=== PATIENT | male | born 1940 | race Caucasian/White ===

== ENCOUNTER 2019-04-23 23:45 | Emergency (ER) | payer MEDICARE ==
[2019-04-23] MEDS ORDERED: Tetracaine 0.5% OPTH.SOL 4 ML* 1 DROP BTL RIGHT EYE ONE (23:47)
[2019-04-23 23:54] VITALS: BP 144/91
[2019-04-23] MEDS ORDERED: Fluorescein Sodium TOPICAL* 1 MG TEST STRIP OPHTHALMIC ONE (23:55)
--- OUTSIDE RECORDS SUMMARY | 2019-04-23 23:56 | XMS REPORT | Summary of Care ---
:1940 Author Organization [facility] Address [address] [address] Care Team Providers Name Role Phone Kleber Perez Primary Care Provider Reason for Visit Reason Comments Trigger Finger Encounter Details Date Type Department Care Team Description 03/28/2019 Office Visit [facility] - Judi Conde, Bilateral hand pain [facility] (Primary Dx) Therapy [id number] [phone] [place] [address] [phone] Allergies Active Allergy Reactions Severity Noted Date Comments Environmental Respiratory Reaction 12/27/2015 Sulfa Antibiotics PAN RECLAIM PROCESSOR Reaction 12/27/2015 Headaches documented as of this encounter (statuses as of 03/28/2019) Medications Medication Sig Dispensed Refills Start Date End Date Status Multiple Vitamin (ONE-A-DAY Take by 0 Active MENS PO) mouth. Fish Oil Does not apply Oil by Does not 0 Active apply route. Specialty Vitamins Products Take by 0 Active (PROSTATE PO) mouth. Loratadine (CLARITIN) 10 MG Take by 0 Active Oral Cap mouth. Tadalafil (CIALIS) 20 MG Take 1 Tab by 12 Tab 5 08/19/2016 Active Oral Tab mouth NEEDED (for sexual activity.). aspirin 325 MG Oral Tab Take 0.5 Tabs 60 Tab 5 02/16/2017 Active by mouth DAILY. fluticasone (FLONASE) 50 USE 2 SPRAYS 3 Bottle 3 02/22/2017 Active MCG/ACT Nasal IN EACH SuspensionIndications: NOSTRIL ONE Chronic rhinitis TIME A DAY Omeprazole delayed rel cap Take 20 mg by 0 Active 20 MG Oral CAPSULE DELAYED mouth DAILY. RELEASE pneumococcal polysaccharide Inject 0.5 mL 1 vial 0 05/11/2018 Active (PNEUMOVAX,PPSV23) 25 within a MCG/0.5ML Injection muscle ONE InjectionIndications: Need TIME. for vaccination Tamsulosin HCl (FLOMAX) 0.4 TAKE 1 60 Cap 11 07/25/2018 Active MG Oral Cap CAPSULE BY MOUTH TWO TIMES DAILY atorvastatin (LIPITOR) 40 Take 1 Tab by 90 Tab 3 07/27/2018 Active MG Oral TabIndications: mouth DAILY. Pure hypercholesterolemia quinapril (ACCUPRIL) 40 MG Take 1 Tab by 90 Tab 3 08/04/2018 Active Oral TabIndications: Benign mouth DAILY. hypertension amLodipine (NORVASC) 10 MG TAKE 1 TABLET 90 Tab 1 12/05/2018 Active Oral TabIndications: Benign BY MOUTH hypertension EVERY DAY bisoprolol (ZEBETA) 5 MG Take 1 Tab by 30 Tab 3 02/27/2019 Active Oral Tab mouth DAILY. 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 Complete heart block 05/25/2016 BPH (benign prostatic hyperplasia) 12/27/2015 Essential hypertension 12/27/2015 Mixed hyperlipidemia 12/27/2015 Coronary artery disease 12/27/2015 Overview: S/p CABG 1990s Cardiology MD in [facility] exercise stress test negative 2012 documented as of this encounter (statuses as of 03/28/2019) Immunizations Name Administration Dates Next Due PNEUMOCOCCAL POLYSACCHARIDE VACCINE 05/11/2018 Pneumococcal Conjugate(13 Valent) 03/13/2016 documented as of this encounter Social History Tobacco Use Types Packs/Day Years Used Date Never Smoker Smokeless Tobacco: Never Used Alcohol Use Drinks/Week oz/Week Comments Yes couple glasses beer or cider a week. Sex Assigned at Date Recorded Not on file Job Start Date Occupation Industry Not on file Not on file Not on file Travel History Travel Start Travel End No recent travel history available. documented as of this encounter Last Filed Vital Signs Not on filedocumented in this encounter Progress Notes Judi Conde PT - 03/28/2019 9:00 AM EDT [facility] Treatment Note [facility] [address] [place] [id number] Treatment Number: 3 Referring Physician: Kleber Perez Primary Diagnosis: ICD-9-CM ICD-10-CM 1. Bilateral hand pain 729.5 M79.641 M79.642 Time In: 0900 Time Out: 929 Total Session Minutes: 30 Pain at Start of Care: 07/24 Pain at End of Care: 06/23 Subjective Comments: Was able to throw a foot ball with his grandson yesterday. Still getting trigger finger and limited with gripping with L thumb. Interventions: Therapeutic Exercises (75647) Patient Education/Home Exercise Program: see exercises below Number of Exercises?: 5 Exercise #1 Exercise Name: R 4th finger extension passively Exercise #2 Exercise Name: L thumb PROM Exercise #3 Exercise Name: Wrist flexor stretching Exercise #4 Exercise Name: Active finger taps on table Exercise #5 Exercise Name: Rubber band extensions Reason for Exercise: Muscle Performance Location/Body Area: Hand Manual Therapy (40609) Soft Tissue Mobilization: Manual Tissue Mobilization;IASTM Soft Tissue Mobilization Details: R finger flexors 3-4th digits, L thenar eminence DTM Instrument-Assisted Soft Tissue Mobilization: Hawkgrips flexors on R hand 3-4th digits, cupping flexors on L with active flexion/extension PROM: R finger flexor stretching, L CMC joint traction and stretching Total Minutes (All Manual Therapy): 25 Modalities Modalities Needed?: Ultrasound Ultrasound (23132) Reason for Use: soft tissue extensibility Body Area: L CMC Frequency: 1.0 MHz Frequency Description: Continuous Intensity: .7wcm2 Total Minutes: 5 minutes Assessment: Patient demonstrates less triggering with R hand, especially with band aid on. Patientalso reports ongoing difficulty in gripping, finger ROM. Skilled Physical Therapy services are required to address ongoing functional and objective limitations/impairments including decreased relationship assoc strength, finger ROM. Plan for Next Visit: Continue MFR, stretching, cupping if helpful Total UNTIMED Code Treatment Minutes: Total TIMED Code Treatment Minutes: 30 Total Treatment Minutes: 30 Author: Judi Conde, PT 03/28/2019 11:55 documented in this encounter Plan of Treatment Date Type Specialty Care Team Description 04/03/2019 Office Visit Physical Therapy Judi Conde, PT [address] [place] [address] [phone] 06/05/2019 [facility] 07/19/2019 Orders Only Cardiology 07/27/2019 Office Visit Cardiology Justin Penaloza MD [address] [place] [address] 10/05/2019 [facility] Health Maintenance Due Date Last Done Comments ZOSTER IMMUNIZATION SERIES 1992 (1 of 2) DEPRESSION SCREENING 05/11/2019 05/11/2018 FALL RISK ASSESSMENT 05/11/2019 05/11/2018, 05/11/2018 MEDICARE ANNUAL WELLNESS 05/11/2019 05/11/2018, 02/16/2017, VISIT 03/13/2016, Additional history exists DIABETES SCREENING 02/17/2020 02/16/2019, 07/26/2018, 07/26/2018, Additional history exists PNEUMOCOCCAL 65+YRS Completed 05/11/2018, 03/13/2016 HPV IMMUNIZATION SERIES Aged Out No longer eligible based on patient's age to complete this topic MENINGOCOCCAL VACCINE IMM Aged Out No longer eligible based on patient's age to complete this topic documented as of this encounter Goals Goal Patient Goal Associated Recent Patient-Stated? Author Type Problems Progress Blood Pressure Blood Pressure 126/84 No Ailyn, < 150/90 (02/09/2019 ABIDA Garzon 10:24 AM EDT) Note: This is an individualized treatment (blood pressure) goal for Juan Collins: Displayed above (on the left) is your goal for blood pressure control. Your most recent blood pressure is also shown above, on the right. You should try to achieve blood pressures that are lower than your goal listed above (on the left). Weight loss vs. 18 mo Lifestyle 17.1 (02/09/2019 10:24 AM No Kleber Perez MD max (lbs) >= 10 EDT) Note: This is an individualized lifestyle goal for Juan Collins: Your body mass index (BMI) is more than 30. You should lose weight. A reasonable starting goal is to lose 10 pounds. Displayed above is how many pounds you have lost thus far towards your 10 pound weight loss goal. Take all prescribed medications as Self-management No Ryann Robertson , ABIDA directed Note: This is an individualized self-management goal for Juan Collins: Please take all prescribed medications as directed. 1. Do not skip doses. If you cannot afford your medications, talk with your doctor. 2. Use a pill reminder system such as a pill box if needed. Your pharmacist can help you with this. 3. Contact your Pharmacy 5 days before your medication runs out. If you cannot take your medications for any reasons, talk with your doctor. 4. Please bring all of your medication bottles and inhalers (or a list of all your medications/inhalers) with you to every visit. Potential barriers to meeting all of your care plan goals will continue to be addressed on an ongoing basis. documented as of this encounter Implants Implanted Type Area Surfacing Machine Operator Device Shelf Model / Identifier Expiration Serial / Date Lot Capsurefix Lead 5076-58cm N/A: Chest [employer] [id number] / Implanted: Qty: 1 on 06/23/2016 by Reuben Fitzpatrick MD at [facility] [id number] / documented as of this encounter Results Not on filedocumented in this encounter Visit Diagnoses Diagnosis Bilateral hand pain - Primary Pain in limb documented in this encounter Insurance Payer Benefit Plan / Subscriber ID Effective Dates Phone Address Type Group [employer] MEDICARE EXCELLUS xxxxxxxxxxxx Effective for [employer] ADVANTAGE MEDICARE BLUE all dates PPO ([phone]) Guarantor Name Account Type Relation to Date of Phone Billing Patient Address Juan Collins Personal/Family 1940 [id number] (Home) [place], [place] [phone] (Work) documented as of this encounter
--- OUTSIDE RECORDS SUMMARY | 2019-04-23 23:56 | XMS REPORT | Continuity of Care Document ---
:1940 External Reference #:[id number] Author Name Kelly Murry O.D. (transmitted by agent of provider Gonzalez Gr) Address [address] [place] [address] Care Team Providers Name Role Phone Kleber Perez M.D. - Family Medicine Care Team Information Electric Motor Assembler [phone] Justin Penaloza M.D. - Care Team Information Electric Motor Assembler [phone] Cardiovascular Disease Problems Active Problems Provider Date Essential hypertension Onset: Arthritis Onset: Hypercholesterolemia Onset: Large prostate Onset: H/O: hay fever Onset: Vitreous degeneration Divina Graham O.D. Onset: 08/12/2015 Myopia Divina Graham O.D. Onset: 08/12/2015 Presbyopia Divina Graham O.D. Onset: 08/12/2015 Presence of intraocular lens Divina Graham O.D. Onset: 08/12/2015 Tear film insufficiency Divina Graham O.D. Onset: 04/20/2016 Marginal corneal ulcer Divina Graham O.D. Onset: 08/17/2016 Angular blepharoconjunctivitis Kelly Murry O.D. Onset: 08/19/2016 Malignant melanoma of skin of nose Onset: Note: left side Corneal opacity Kelly Murry O.D. Onset: 09/03/2017 Social History Type Date Description Comments Sex Unknown ETOH Use Rarely consumes alcohol Recreational Drug Use Denies Drug Use Tobacco Use Start: Unknown Patient has never smoked Smoking Status Reviewed: 04/21/19 Patient has never smoked Allergies, Adverse Reactions, Alerts Active Allergies Reaction Severity Comments Date Sulfa Antibiotics 08/12/2015 Medications Active Medications SIG Qnty Indications Ordering Provider Date Refresh 1-3 times a day Kelly Gracia 04/20/2019 1.4-0.6% Solution Gemma Murry Blink Tears Lubricating as needed Kelly Fagan 04/20/2019 Eye Drops Gemma Murry 0.25% Solution Fish Oil 1 by mouth every Kelly Fagan 07/29/2018 1000mg Capsules day Gemma Murry Quinapril HCL Take 1 Tablet By Unknown 40mg Tablets Mouth Every Day Amlodipine Besylate Take 1 Tablet By Unknown 10mg Mouth Every Day Tablets Tamsulosin HCL Take 1 Tablet By Unknown 0.4mg Mouth Twice A Capsules Day After Supper Daily Fluticasone Propionate [place] M.DKandy 50mcg/Act Suspension Aspirin 1/2 tab daily Unknown 325mg Tablets Atorvastatin Calcium [place] 40mg M.D. Tablets Bisoprolol Fumarate McClintic, 5mg Justin M.D. Tablets Cetaphil Gentle daily Unknown Cleanser Liquid Omeprazole Unknown 20mg Capsules DR Goyal Description No Information Available Vital Signs Description No Information Available Results Description No Information Available Procedures Date Code Description Status 12/19/2018 67359 Est Patient Intermediate Exam Completed Medical Devices Description No Information Available Encounters Description No Information Available Assessments Date Code Description Provider 04/21/2019 H17.89 Other corneal scars and opacities Kelly Murry O.D. 04/21/2019 H04.123 Dry eye syndrome of bilateral lacrimal Kelly Murry O.D. glands 04/21/2019 Z96.1 Presence of intraocular lens Kelly Murry O.D. 12/19/2018 H17.89 Other corneal scars and opacities Kelly Murry O.D. 12/19/2018 Z96.1 Presence of intraocular lens Kelly Murry O.D. 12/19/2018 H04.123 Dry eye syndrome of bilateral lacrimal Kelly Murry O.D. glands 12/19/2018 H10.523 Angular blepharoconjunctivitis, bilateral Kelly Murry O.D. Plan of Treatment Future Appointment(s):10/20/2019 2:00 pm - Kelly Murry O.D. at Mode G[facility]mez MD, [facility]06/21/2018 - Kelly Murry O.D.H17.89 Other corneal scars and opacitiesComments:continue taking fish oil continue hot compressescontinue the erythromycin ointmentuse blink and clean for contactsFollow up:6 Month Follow Up dry eye/pannus qenzcG10.123 Dry eye syndrome of bilateral lacrimal tvtcrdM76.1 Presence of intraocular lens Functional Status Description No Information Available Mental Status Description No Information Available Referrals Description No Information Available
--- OUTSIDE RECORDS SUMMARY | 2019-04-23 23:56 | XMS REPORT | Summary of Care ---
:1940 Author Organization [facility] Address [address] [address] Care Team Providers Name Role Phone Kleber Perez Primary Care Provider Reason for Visit Reason Comments Trigger Finger Encounter Details Date Type Department Care Team Description 03/21/2019 Office Visit [facility] - Judi Conde, Bilateral hand pain [facility] (Primary Dx) Therapy [id number] [phone] [place] [address] [phone] Allergies Active Allergy Reactions Severity Noted Date Comments Environmental Respiratory Reaction 12/27/2015 Sulfa Antibiotics RADIOCHEMICAL TECHNICIAN Reaction 12/27/2015 Headaches documented as of this encounter (statuses as of 03/21/2019) Medications Medication Sig Dispensed Refills Start Date [...] as of this encounter (statuses as of 03/21/2019) Active Problems Problem Noted Date Pacemaker lead malfunction 06/23/2016 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 Complete heart block 05/25/2016 BPH (benign prostatic hyperplasia) 12/27/2015 Essential hypertension 12/27/2015 Mixed hyperlipidemia 12/27/2015 Coronary artery disease 12/27/2015 Overview: S/p CABG 1990s Cardiology MD in [facility] exercise stress test negative 2012 documented as of this encounter (statuses as of 03/21/2019) Immunizations Name Administration Dates Next Due PNEUMOCOCCAL [...] encounter Progress Notes Judi Conde PT - 03/21/2019 9:00 AM EDT [facility] Treatment Note [facility]patient Physical [facility] [place] [facility] [address] [facility] [address] [facility] [place] [phone] Treatment Number: 2 Referring Physician: Greta Shea Primary Diagnosis: ICD-9-CM ICD-10-CM 1. Bilateral hand pain 729.5 M79.641 M79.642 Time In: 0900 Time Out: 929 Total Session Minutes: 30 Pain at Start of Care: 08/21 Pain at End of Care: 07/24 Subjective Comments: Pt reports hands being in pain, he just took a trip driving to [place]. Interventions: Therapeutic Exercises (01218) Patient Education/Home Exercise Program: see exercises below Number of Exercises?: 5 Exercise #1 Exercise Name: R 4th finger extension passively Exercise #2 Exercise Name: L thumb PROM Exercise #3 Exercise Name: Wrist flexor stretching Exercise #4 Exercise Name: Active finger taps on table Manual Therapy (10653) Soft Tissue Mobilization: Manual Tissue Mobilization;IASTM Soft Tissue Mobilization Details: R finger flexors 3-4th digits, L thenar eminence DTM Instrument-Assisted Soft Tissue Mobilization: Hawkgrips flexors on R hand 3-4th digits PROM: R finger flexor stretching, L CMC joint traction and stretching Total Minutes (All Manual Therapy): 25 Modalities Modalities Needed?: Ultrasound Ultrasound (02798) Reason for Use: soft tissue extensibility Body Area: L CMC Frequency: 1.0 MHz Frequency Description: Continuous Intensity: .7wcm2 Total Minutes: 5 minutes I added a band aid to R hand 4th digit between MCP and IP to block flexion. This allowed him to gripwith out locking of tendon. Assessment: Patient demonstrates pain at CMC on R thumb, likely due to drive, this improved with manual deep tissue work performed and no pain with gripping. Patient also reports ongoing difficulty in gripping/driving repetitive use of hands. Skilled Physical Therapy services are required to address ongoing functional and objective limitations/impairments including decreased shoelace tipping machine operator strength, limitedflexor flexibility. Plan for Next Visit: Progress mobilizations as tolerated. Total UNTIMED Code Treatment Minutes: Total TIMED Code Treatment Minutes: 30 Total Treatment Minutes: 30 Author: Judi Conde, CYN 03/21/2019 10:31 documented in this encounter Plan of Treatment Date Type Specialty Care Team Description 03/21/2019 Lab Internal Medicine Arrived 03/28/2019 Office Visit Physical Therapy Judi Conde, PT [address] [place] [address] [phone] 06/05/2019 [facility] 07/19/2019 Orders Only Cardiology 07/27/2019 Office Visit Cardiology Justin Penaloza MD [address] [place] [address] 10/05/2019 [facility] Health Maintenance Due Date Last [...] of this encounter Implants Implanted Type Area Human Anatomy Teacher Device Shelf Model / Identifier Expiration Serial / Date Lot Capsurefix Lead 5076-58cm N/A: Chest [employer] 5076-58CM / Implanted: Qty: 1 on 06/23/2016 by Reuben Fitzpatrick MD at [facility] [id number] / documented as of this encounter Results Not on filedocumented in this encounter Visit Diagnoses Diagnosis Bilateral hand pain - Primary Pain in limb documented in this encounter Insurance Payer Benefit Plan / Subscriber ID Effective Dates Phone Address Type Group [employer] MEDICARE EXCELLUS xxxxxxxxxxxx Effective for [employer] ADVANTAGE MEDICARE BLUE all dates PPO ([phone]) Guarantor Name Account Type Relation to Date of Phone Billing Patient Address Juan Collins Personal/Family [address] (Home) [place], [place] [phone] (Work) documented as of this encounter
--- OUTSIDE RECORDS SUMMARY | 2019-04-23 23:56 | XMS REPORT | Summary of Care ---
:1940 Author Organization [facility] Address [address] [address] Care Team Providers Name Role Phone Kleber Perez MD Primary Care Provider Reason for Visit Reason Comments Trigger Finger right Thumb Pain left Encounter Details Date Type Department Care Team Description 02/28/2019 Office Visit [facility] - Judi Conde, Bilateral hand pain [place] [facility] (Primary Dx) Therapy [address] [place] [address] [address] [phone] [place] [phone] Allergies Active Allergy Reactions Severity Noted Date Comments Environmental Respiratory Reaction 12/27/2015 Sulfa Antibiotics HANDICAPPER HARNESS RACING Reaction 12/27/2015 Headaches documented as of this encounter (statuses as of 02/28/2019) Medications Medication Sig Dispensed Refills Start Date [...] as of this encounter (statuses as of 02/28/2019) Active Problems Problem Noted Date Pacemaker lead malfunction 06/23/2016 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 Complete heart block 05/25/2016 BPH (benign prostatic hyperplasia) 12/27/2015 Essential hypertension 12/27/2015 Mixed hyperlipidemia 12/27/2015 Coronary artery disease 12/27/2015 Overview: S/p CABG 1990s Cardiology in [facility] exercise stress test negative 2012 documented as of this encounter (statuses as of 02/28/2019) Immunizations Name Administration Dates Next Due PNEUMOCOCCAL [...] on filedocumented in this encounter Progress Notes Conde Judi, PT - 02/28/2019 2:00 PM EDT [facility] Initial Evaluation Outpatient Physical [facility] [address] [facility] [address] Patient: Juan Collins : 1940 Date of Service: 02/28/2019 Referring Physician: Greta Shea Primary Diagnosis: ICD-9-CM ICD-10-CM 1. Bilateral hand pain 729.5 M79.641 M79.642 Time In: 0215 Time Out: 0300 Subjective: He is a 78-y.o.-year-old male who presents for outpatient physical therapy with a chiefcomplaint of chronic hand pain. Notes a trigger finger 4th digit right hand that is worsening and L thumb joint is painful. This has gone on for years and is worsening. Painful with gripping, he drivesoften. Hx of pacemaker. Prior Functional Status: Chronic hand pain, not limiting though Current Functional Status: Limited with gripping, driving Abuse/Neglect Screening Are you being threatened or hurt by anyone? 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/02/2016 PVD (peripheral vascular disease) (HCC) Past Surgical History: Procedure Laterality Date ARTHROSCOPY KNEE Right CORONARY ARTERY BYPASS, VEIN O 1995 4 vessel, done in [place], [place] APPENDECTOMY [place] INS NEW/RPLCMT PRM PACEMAKR W/TRANS ELTRD ATRIAL 2015 [place] REMOVAL GALLBLADDER REPAIR INITIAL INGUINAL HERNIA, 2010 approx done in [place] TONSILLECTOMY 1952 UNLISTED PROCEDURE,MUSCULOSKELE Current Outpatient Medications: amLodipine (NORVASC) 10 MG Oral Tab, TAKE 1 TABLET BY MOUTH EVERY DAY, Disp: 90 Tab, Rfl: 1 aspirin 325 MG Oral Tab, Take 0.5 Tabs by mouth DAILY., Disp: 60 Tab, Rfl: 5 atorvastatin (LIPITOR) 40 MG Oral Tab, Take 1 Tab by mouth DAILY., Disp : 90 Tab, Rfl: 3 bisoprolol (ZEBETA) 5 MG Oral Tab, Take 1 Tab by mouth DAILY., Disp: 30 Tab, Rfl: 3 Fish Oil Does not apply Oil, by Does not apply route., Disp: , Rfl: fluticasone (FLONASE) 50 MCG/ACT Nasal Suspension, USE 2 SPRAYS IN EACH NOSTRIL ONE TIME A DAY, Disp: 3 Bottle, Rfl: 3 Loratadine (CLARITIN) 10 MG Oral Cap, Take by mouth., Disp: , Rfl: Multiple Vitamin (ONE-A-DAY MENS PO), Take by mouth., Disp: , Rfl: Omeprazole delayed rel cap 20 MG Oral CAPSULE DELAYED RELEASE, Take 20 mg by mouth DAILY., Disp: , Rfl: pneumococcal polysaccharide (PNEUMOVAX,PPSV23) 25 MCG/0.5ML Injection Injection, Inject 0.5 mL within a muscle ONE TIME., Disp: 1 vial, Rfl: 0 quinapril (ACCUPRIL) 40 MG Oral Tab, Take 1 Tab by mouth DAILY., Disp: 90 Tab, Rfl: 3 Specialty Vitamins Products (PROSTATE PO), Take by mouth., Disp: , Rfl: Tadalafil (CIALIS) 20 MG Oral Tab, Take 1 Tab by mouth NEEDED (for sexual activity.)., Disp: 12 Tab, Rfl: 5 Tamsulosin HCl (FLOMAX) 0.4 MG Oral Cap, TAKE 1 CAPSULE BY MOUTH TWO TIMES DAILY, Disp: 60 Cap, Rfl: 11 Allergies Allergen Reactions Environmental Respiratory Reaction Sulfa Antibiotics HANDICAPPER HARNESS RACING Reaction Headaches Inspection: soft tissue restrictions/nodules noted R 4th digit flexors. Palpation: positive through finger flexors on R, CMC joint on L especially thenar eminence Wrist A/PROM: mild limitation into wrist extension on R Finger P/AROM 4th digit R: MP and IP lacking 5 degrees of extension Thumb P/AROM: bilateral is WNL, but painful with flexion and opposition on L thumb Plan of Care Plan of Care Start Date: 02/28/19 Plan of Care Expiration Date: 05/30/19 Prior Function Comment: Chronic hand pain, not limiting though Current Function Comment: Limited with gripping, driving Rehabilitative Prognosis: Good Planned Intervention(s): PT Eval Moderate Complexity (78104);Therapeutic Exercise (Timed) (90209);Ultrasound (Timed) (45963);Manual Therapy (Timed) ( 87510) Frequency of Treatments: 1-2 times a week Duration of Treatments: 3 months History Components: Moderate (1-2 personal factors and/or comorbidities)( Pacemaker, chronic low backand hand pain) Examination of Body Systems/Components: Moderate (Addressing a total of 3 or more elements)(Decreased wrist and finger flexibility, 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 Pt currently demonstrates decreased flexor tendon mobility R hand, decreased CMC and MP joint flexibility on L thumb, decreased oil rig driller strength. These impairments are resulting in functional limitations including pain while driving, performing repetitive activities with hands, gripping. Signs and symptoms consistent with trigger finger R hand 4th digit, CMC mobility dysfunction due to OA on L thumb. Pt would therefore benefit from skilled physical therapy in order to restore pain free mobility and oil rig driller strength. Was Physical Therapy treatment performed at this visit? Yes: Interventions: FOTO Data FOTO Intake Completed: Yes Intake FS Score: 72 Predicted FS Score: 71 Therapeutic Exercises (76777) Patient Education/Home Exercise Program: see exercises below Number of Exercises?: 5 Exercise #1 Exercise Name: R 4th finger extension passively Exercise #2 Exercise Name: L thumb PROM Exercise #3 Exercise Name: Wrist flexor stretching Exercise #4 Exercise Name: Active finger taps on table Manual Therapy (40263) Soft Tissue Mobilization: Manual Tissue Mobilization;IASTM Soft Tissue Mobilization Details: R finger flexors 3-4th digits, L thenar eminence DTM Instrument-Assisted Soft Tissue Mobilization: Hawkgrips flexors on R hand 3-4th digits PROM: R finger flexor stretching, L CMC joint traction and stretching Total Minutes (All Manual Therapy): 15 Modalities Modalities Needed?: Ultrasound Ultrasound (30667) Reason for Use: soft tissue extensibility Body Area: L CMC Frequency: 1.0 MHz Frequency Description: Continuous Intensity: .7wcm2 Total Minutes: 5 minutes Plan for Next Visit: COntinue US and paraffin on L, MFR with hawkgrips on R Evaluation Complexity Assessment: History Components: Moderate (1-2 personal factors and/or comorbidities)(Pacemaker, chronic low back and hand pain) Examination of Body Systems/Components: Moderate (Addressing a total of 3 or more elements)(Decreased wrist and finger flexibility, dec oil rig driller strenght) Clinical Presentation: Evolving - changing/inconsistent clinical characteristics (Moderate)(Symptomsare chronic and mult body regions involved) Clinical Decision Making (complexity): Moderate Treatment Number: 1 Total Time of Evaluation: 45 Total Number of Timed Code Treatment Minutes: 20 Author: Judi Conde, PT 02/28/2019 16:35 documented in this encounter Plan of Treatment Date Type Specialty Care Team Description 03/21/2019 Office Visit Physical Therapy Judi Conde, PT [address] [place] [address] [phone] 06/05/2019 [facility] 07/19/2019 Orders Only Cardiology 07/27/2019 Office Visit Cardiology Justin Penaloza MD [address] [place] [address] [phone] 10/05/2019 [facility] Health Maintenance Due Date Last [...] prescribed medications as Self-management No Ryann Robertson FNP directed Note: This is an individualized self-management [...] of this encounter Implants Implanted Type Area Rn Social Work Device Shelf Model / Identifier Expiration Serial / Date Lot Capsurefix Lead 5076-58cm N/A: Chest [employer] 5076-58CM / Implanted: Qty: 1 on 06/23/2016 by Reuben Fitzpatrick MD at [facility] [id number] / documented as of this encounter Results Not on filedocumented in this encounter Visit Diagnoses Diagnosis Bilateral hand pain - Primary Pain in limb documented in this encounter Insurance Payer Benefit Plan / Subscriber ID Effective Dates Phone Address Type Group [employer] MEDICARE EXCELL xxxxxxxxxxxx Effective for [employer]VANT[employer] MEDICARE BLUE all dates PPO ([phone]) Guarantor Name Account Type Relation to Date of Phone Billing Patient Address DennisJuan Personal/Family 1940 [phone] (Home) [place], [place] [phone] (Work) documented as of this encounter
--- OUTSIDE RECORDS SUMMARY | 2019-04-23 23:56 | XMS REPORT | Summary of Care ---
:1940 Author Organization [facility] Address [address] [address] Care Team Providers Name Role Phone Kleber Perez Primary Care Provider Reason for Visit Reason Comments Shoulder Pain Encounter Details Date Type Department Care Team Description 04/03/2019 Office Visit [facility] - Judi Conde, Bilateral hand pain [place] [facility] (Primary Dx) Therapy [address] [place] [id number] [address] [phone] [place] [address] [phone] Allergies Active Allergy Reactions Severity Noted Date Comments Environmental Respiratory Reaction 12/27/2015 Sulfa Antibiotics LIEUTENANT GENERAL Reaction 12/27/2015 Headaches documented as of this encounter (statuses as of 04/03/2019) Medications Medication Sig Dispensed Refills Start Date [...] as of this encounter (statuses as of 04/03/2019) Active Problems Problem Noted Date Pacemaker lead malfunction 06/23/2016 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 Complete heart block 05/25/2016 BPH (benign prostatic hyperplasia) 12/27/2015 Essential hypertension 12/27/2015 Mixed hyperlipidemia 12/27/2015 Coronary artery disease 12/27/2015 Overview: S/p CABG 1990s Cardiology MD in [facility] exercise stress test negative 2012 documented as of this encounter (statuses as of 04/03/2019) Immunizations Name Administration Dates Next Due PNEUMOCOCCAL [...] encounter Progress Notes Judi Conde PT - 04/03/2019 9:30 AM EDT [facility] Treatment Note [facility]patient Physical [facility] [address] [place] [phone] Treatment Number: 4 Referring Physician: Kleber Perez Primary Diagnosis: ICD-9-CM ICD-10-CM 1. Bilateral hand pain 729.5 M79.641 M79.642 Time In: 929 Time Out: 1000 Total Session Minutes: 30 Pain at Start of Care: 07/24 Pain at End of Care: 06/23 Subjective Comments: Small improvements each week, more so on R trigger finger vs L thumb. Interventions: Therapeutic Exercises (73076) Number of Exercises?: 5 Exercise #1 Exercise Name: R 4th finger extension passively Exercise #2 Exercise Name: L thumb PROM Exercise #3 Exercise Name: Wrist flexor stretching Exercise #4 Exercise Name: Active finger taps on table Exercise #5 Exercise Name: Rubber band extensions Reason for Exercise: Muscle Performance Location/Body Area: Hand Manual Therapy (24534) Soft Tissue Mobilization: Manual Tissue Mobilization;IASTM Soft Tissue Mobilization Details: R finger flexors 3-4th digits, L thenar eminence DTM Instrument-Assisted Soft Tissue Mobilization: Hawkgrips flexors on R hand 3-4th digits, cupping flexors on L with active flexion/extension PROM: R finger flexor stretching, L CMC joint traction and stretching Total Minutes (All Manual Therapy): 25 Modalities Modalities Needed?: Ultrasound Ultrasound (74044) Reason for Use: soft tissue extensibility Body Area: L CMC Frequency: 1.0 MHz Frequency Description: Continuous Intensity: .7wcm2 Total Minutes: 5 minutes Assessment: Patient demonstrates less tenderness to palpation L CMC and thenar eminence. Will add ball rolling for self release. Patient also reports ongoing difficulty in gripping and use of hands.Skilled Physical Therapy services are required to address ongoing functional and objective limitations/impairments including decreased hand and finger mobility and manager valuation strength. Plan for Next Visit: Continue mobilizations Total UNTIMED Code Treatment Minutes: Total TIMED Code Treatment Minutes: 30 Total Treatment Minutes: 30 Author: Judi Conde, PT 04/03/2019 11:33 documented in this encounter Plan of Treatment Date Type Specialty Care Team Description 04/10/2019 Office Visit Physical Therapy Judi Conde, PT [address] [place] [address] [phone] 06/05/2019 [facility] Arrhythmia [facility] 07/19/2019 Orders Only Cardiology 07/27/2019 Office Visit Cardiology Justin Penaloza MD [address] [place] [address] [phone] 10/05/2019 [facility] Arrhythmia [facility] Health Maintenance Due Date [...] an individualized treatment (blood pressure) goal for Jaun Collins: Displayed above (on the left) is [...] of this encounter Implants Implanted Type Area Director Global Device Shelf Model / Identifier Expiration Serial / Date Lot Capsurefix Lead 5076-58cm N/A: Chest [employer] 5076-58CM / Implanted: Qty: 1 on 06/23/2016 by Reuben Fitzpatrick MD at [facility] [id number] / documented as of this encounter Results Not on filedocumented in this encounter Visit Diagnoses Diagnosis Bilateral hand pain - Primary Pain in limb documented in this encounter Insurance Payer Benefit Plan / Subscriber ID Effective Dates Phone Address Type Group [facility] MEDICARE EXCELLUS xxxxxxxxxxxx Effective for [employer] ADVANTAGE MEDICARE BLUE all dates PPO ([phone]) Guarantor Name Account Type Relation to Date of Phone Billing Patient Address Juan Collins Personal/Family 1940 [address] (Home) [place], [place] [phone] (Work) documented as of this encounter
--- OUTSIDE RECORDS SUMMARY | 2019-04-23 23:56 | XMS REPORT | Summary of Care ---
:1940 Author Organization [facility] Address [address] [address] Care Team Providers Name Role Phone Kleber Perez Primary Care Provider Reason for Visit Reason Comments Trigger Finger Encounter Details Date Type Department Care Team Description 04/10/2019 Office Visit [facility] - Judi Conde, Bilateral hand pain (Primary Dx); [place] [facility] Sciatica, unspecified laterality Therapy [address] [place] [address] [address] [phone] [place] [phone] Allergies Active Allergy Reactions Severity Noted Date Comments Environmental Respiratory Reaction 12/27/2015 Sulfa Antibiotics COLLEGE FOOTBALL COACH Reaction 12/27/2015 Headaches documented as of this encounter (statuses as of 04/10/2019) Medications Medication Sig Dispensed Refills Start Date [...] as of this encounter (statuses as of 04/10/2019) Active Problems Problem Noted Date Pacemaker lead malfunction 06/23/2016 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 Treatment Note Outpatient Physical [facility] [address] [place] [phone] Treatment Number: 5 Referring Physician: Kleber Perez Primary Diagnosis: ICD-9-CM ICD-10-CM 1. Bilateral hand pain 729.5 M79.641 M79.642 2. Sciatica, unspecified laterality 724.3 M54.30 Plan of Care Expiration Date: Time In: 929 Time Out: 999 Total Session Minutes: 30 Pain at Start of Care: 07/24 Pain at End of Care: 06/23 Subjective Comments: Slow steady progress Interventions: Therapeutic Exercises (17544) Number of Exercises?: 5 Exercise #1 Exercise Name: R 4th finger extension passively Exercise #2 Exercise Name: L thumb PROM Exercise #3 Exercise Name: Wrist flexor stretching Exercise #4 Exercise Name: Active finger taps on table Exercise #5 Exercise Name: Rubber band extensions Reason for Exercise: Muscle Performance Location/Body Area: Hand Manual Therapy (95397) Soft Tissue Mobilization: Manual Tissue Mobilization;IASTM Soft Tissue Mobilization Details: R finger flexors 3-4th digits, L thenar eminence DTM Instrument-Assisted Soft Tissue Mobilization: Hawkgrips flexors on R hand 3-4th digits, cupping flexors on L with active flexion/extension PROM: R finger flexor stretching, L CMC joint traction and stretching Total Minutes (All Manual Therapy): 25 Modalities Modalities Needed?: Ultrasound Ultrasound (60623) Reason for Use: soft tissue extensibility Body Area: L CMC Frequency: 1.0 MHz Frequency Description: Continuous Intensity: .7wcm2 Total Minutes: 5 minutes Assessment: Patient demonstrates less pain and increased finger flexion R hand , still triggers and partly due to loss of joint mobility PIP and DIP joints. Patient also reports ongoing difficulty in gripping and dripping. Skilled Physical Therapy services are required to address ongoing functional and objective limitations/impairments including decreased hand flexibility and statistical assistant strength. Plan for Next Visit: COntinue mobilizations, splitting as needed for R hand Total UNTIMED Code Treatment Minutes: Total TIMED Code Treatment Minutes: 30 Total Treatment Minutes: 30 Author: Judi Conde, PT 04/10/2019 10:11 documented in this encounter Plan of Treatment Date Type Specialty Care Team Description 06/05/2019 [facility]ia [facility] 07/19/2019 Orders Only Cardiology 07/27/2019 Office Visit Cardiology Justin Penaloza MD [address] [place] [address] [phone] 10/05/2019 [facility] Arrhythmia [place] Health Maintenance Due Date Last Done Comments [...] of this encounter Implants Implanted Type Area Advertising Designer Device Shelf Model / Identifier Expiration Serial / Date Lot Capsurefix Lead 5076-58cm N/A: Chest [employer] 5076-58CM / Implanted: Qty: 1 on 06/23/2016 by Reuben Fitzpatrick MD at [facility] [id number] / documented as of this encounter Results Not on filedocumented in this encounter Visit Diagnoses Diagnosis Bilateral hand pain - Primary Pain in limb Sciatica, unspecified laterality documented in this encounter Insurance Payer Benefit Plan / Subscriber ID Effective Dates Phone Address Type Group [facility] xxxxxxxxxxxx Effective for [employer] ADVANTAGE MEDICARE BLUE all dates PPO ([phone]) Guarantor Name Account Type Relation to Date of Phone Billing Patient Address Juan Collins Yulissa Personal/Family 1940 [address] (Home) [place], [place] [phone] (Work) documented as of this encounter
--- OUTSIDE RECORDS SUMMARY | 2019-04-23 23:56 | XMS REPORT | Summary of Care ---
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 Headaches documented as of this encounter (statuses as of 04/17/2019) Medications Medication Sig Dispensed Refills Start Date [...] as of this encounter (statuses as of 04/17/2019) Active Problems Problem Noted Date Pacemaker lead malfunction 06/23/2016 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 Complete heart block 05/25/2016 BPH (benign prostatic hyperplasia) 12/27/2015 Essential hypertension 12/27/2015 Mixed hyperlipidemia 12/27/2015 Coronary artery disease 12/27/2015 Overview: S/p CABG 1990s Cardiology MD in [facility] exercise stress test negative 2012 documented as of this encounter (statuses as of 04/17/2019) Immunizations Name Administration Dates Next Due PNEUMOCOCCAL [...] encounter Progress Notes Judi Conde PT - 04/17/2019 8:30 AM EST [facility] Discharge Note Outpatient Physical Therapy [facility] [address] [place] [id number] Patient: Juan Collins : 1940 Date of Service: 04/17/2019 Referring Physician: Kleber Perez This discharge report is for dates 02/28/19 to 04/17/2019. Total Visits Attended: 6 Time In: 0830 Time Out: 09 ICD-9-CM ICD-10-CM 1. Bilateral hand pain 729.5 M79.641 M79.642 Subjective: Juan Collins is a 78-y.o.-year-old male attending physical therapy for R 4th digit trigger finger and OA of L CMC joint. 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 He feels independent in HEP and will need to just work through the nature of "aging". Prior Functional Status: Prior Function Comment: Chronic hand pain, not limiting though Current Functional Status: Current Function Comment: Slight improvement Objective: Inspection: soft tissue restrictions/nodules noted R 4th digit flexors. >25% improved Palpation: positive through finger flexors on R, CMC joint on L especially thenar eminence Wrist A/PROM: WNL Finger P/AROM 4th digit R: MP and IP lacking 5 degrees of extension actively this is WNL passively Thumb P/AROM: bilateral is WNL, but painful with flexion and opposition on L thumb Outcome Tools Used: FOTO Interventions: Was Physical Therapy treatment performed at this visit? Yes: Interventions: Therapeutic Exercises (25624) Number of Exercises?: 5 Exercise #1 Exercise Name: R 4th finger extension passively Exercise #2 Exercise Name: L thumb PROM Exercise #3 Exercise Name: Wrist flexor stretching Exercise #4 Exercise Name: Active finger taps on table Exercise #5 Exercise Name: Rubber band extensions Reason for Exercise: Muscle Performance Location/Body Area: Hand Manual Therapy (28379) Soft Tissue Mobilization: Manual Tissue Mobilization;IASTM Soft Tissue Mobilization Details: R finger flexors 3-4th digits, L thenar eminence DTM Instrument-Assisted Soft Tissue Mobilization: Hawkgrips flexors on R hand 3-4th digits, cupping flexors on L with active flexion/extension PROM: R finger flexor stretching, L CMC joint traction and stretching Total Minutes (All Manual Therapy): 25 Modalities Modalities Needed?: Ultrasound Ultrasound (46371) Reason for Use: soft tissue extensibility Body Area: L CMC Frequency: 1.0 MHz Frequency Description: Continuous Intensity: .7wcm2 Total Minutes: 5 minutes Goal Status: Short term goals to be achieved within 4 weeks: 1. Pt will demonstrate full and pain free PROM of 4th R finger > MET 2. 2. Pt will reports 50% reduction in average pain levels of bilateral hands & gt; MET 3. Pt will demonstrate full and pain free PROM of L thumb > NOT MET intermediate goals to be achieved within 8 weeks:NOT MET 1. Pt will demonstrate full and pain free AROM of R hand/fingers 2. Pt will perform all recreational activities with out limitations of bilateral hands 3. Pt will be independent in HEP Assessment Status: Pt has at least 50% improvement in average pain levels of his hands but not resolved. He also has about 50% less triggering of R hand with use of band aid "splint" and soft tissue work/stretching. At this time he has reached a plateau in skilled physical therapy and will continue with HEP. I recommended he seek a consultation from a hand surgeon if he does not continue to improve regarding trigger finger. Reason for Discharge: Progress plateaued The Therapy Discharge plan has been communicated to Juan Collins, and he has demonstrated understanding of the plan. Total Timed Minutes: 30 Author: Judi Conde PT 04/17/2019 09:40 documented in this encounter Plan of Treatment Date Type Specialty Care Team Description 06/05/2019 [facility] Arrhythmia Colstrip 07/19/2019 Orders Only Cardiology 07/27/2019 Office Visit Cardiology Justin Penaloza MD [address] [place], [place] [id number] 10/05/2019 [facility] Arrhythmia Colstrip Health Maintenance Due Date Last Done Comments [...] goal. Take all prescribed medications as Self-management Ryann Willingham FNP directed Note: This is an individualized [...] of this encounter Implants Implanted Type Area Grain Origination Specialist Device Shelf Model / Identifier Expiration Serial / Date Lot Capsurefix Lead [id number] N/A: Chest [employer] [id number] / Implanted: Qty: 1 on 06/23/2016 by Reuben Fitzpatrick MD at [facility] [id number] / documented as of this encounter Results Not on filedocumented in this encounter Visit Diagnoses Diagnosis Bilateral hand pain - Primary Pain in limb documented in this encounter Insurance Payer Benefit Plan / Subscriber ID Effective Dates Phone Address Type Group [employer] EX[employer] xxxxxxxxxxxx Effective for [employer] ADVANT[employer] MEDICARE BLUE all dates PPO ([phone]) Guarantor Name Account Type Relation to Date of Phone Billing Patient Address Juan Collins Yulissa Personal/Family 1940 [id number] (Home) [place], [place] [phone] (Work) documented as of this encounter
--- NOTE | 2019-04-24 00:06 | ED ---
Throat Pain/Nasal Congestion - HPI Summary HPI Summary: 78 yo male presents with ?contact retained in right eye. He tells me that he was taking his contacts out this evening and the right one was not in his hand. Unsure where it went. Does not have any pain or FB sensation in his right eye. He looked briefly around the area, but could not find it. Became concerned that it is stuck within his eye. - History of Current Complaint Chief Complaint: EDEyeProblem Time Seen by Provider: 04/24/19 00:05 Hx Obtained From: Patient Onset/Duration: Sudden Onset - Allergies/Home Medications Allergies/Adverse Reactions: Allergies Allergy/AdvReac Type Severity Reaction Status Date / Time Sulfa (Sulfonamide AdvReac Headache Verified 04/23/19 23:49 Antibiotics) HAYFEVER/SEASONA Allergy SINUS Uncoded 04/23/19 23:49 PROBLEMS PMH/Surg Hx/FS Hx/Imm Hx Endocrine/Hematology History: Denies: Hx Diabetes Cardiovascular History: Reports: Hx Angina - OCCASSIOINAL WITH STRESSFUL ACTIVTY , Hx Coronary Artery Disease, Hx Hypercholesterolemia, Hx Hypertension, Hx Pacemaker/ICD - 04/23/16, Other Cardiovascular Problems/Disorders - 1995 QUADRUPAL BYPASS. INTERMITTENT COMPLETE HEART BLOCK. Denies: Hx Congestive Heart Failure Respiratory History: Denies: Hx Asthma GI History: Reports: Hx Gall Bladder Disease - removed History: Reports: Hx Kidney Stones Denies: Hx Renal Disease Comment Only: Other Problems/Disorders - stones Musculoskeletal History: Reports: Hx Arthritis, Hx Tendonitis - R elbow, Other Musculoskeletal History - R knee torn meniscus X3 Sensory History: Reports: Hx Cataracts - BILATERAL, Hx Contacts or Glasses Denies: Hx Hearing Aid Opthamlomology History: Reports: Hx Cataracts - BILATERAL, Hx Contacts or Glasses Neurological History: Reports: Other Neuro Impairments/Disorders - RESTLESS LEG SYNDROME Psychiatric History: Denies: Hx Panic Disorder - Surgical History Surgical History: Yes Surgery Procedure, Year, and Place: QUAD BYPASS, HERNIA, APPI, R knee repair Hx Anesthesia Reactions: No Infectious Disease History: No Infectious Disease History: Denies: Hx Hepatitis, Hx of Known/Suspected MRSA, Hx Shingles, Hx Tuberculosis, Traveled Outside the [place] in Last 30 Days - Family History Known Family History: Positive: Cardiac Disease, Hypertension Negative: Diabetes - Social History Alcohol Use: None Alcohol Amount: 1-2 DRINKS/WEEK Substance Use Type: Reports: None Smoking Status (MU): Never Smoked Tobacco Have You Smoked in the Last Year: No Review of Systems Constitutional: Negative Positive: Other - ?contact stuck in eye Cardiovascular: Negative Respiratory: Negative Neurological: Negative Psychological: Normal All Other Systems Reviewed And Are Negative: No Physical Exam - Summary Physical Exam Summary: GENERAL: WDWN. No pain distress. SKIN: No rashes, sores, lesions, or open wounds. HEENT: Head: AT/NC Eyes: EOM intact. PERRLA. RIGHT EYE: No scleral injection. Conjunctiva without erythema or inflammation. No discharge. No FB or contact appreciated. Fluorescein normal and no increased uptake, abrasion, yeimi sign, or ulceration. CHEST: No accessory muscle use. Breathing comfortably and in no distress. CV: Pulses intact. Cap refill <2seconds NEURO: Alert. PSYCH: Age appropriate behavior. Triage Information Reviewed: Yes Vital Signs On Initial Exam: Initial Vitals Temp Pulse Resp BP Pulse Ox 97.3 F 65 16 144/91 95 04/23/19 23:48 04/23/19 23:48 04/23/19 23:48 04/23/19 23:48 04/23/19 23:48 Vital Signs Reviewed: Yes Procedures - Sedation Patient Received Moderate/Deep Sedation with Procedure: No Diagnostics - Vital Signs Vital Signs Temp Pulse Resp BP Pulse Ox 04/23/19 23:48 97.3 F 65 16 144/91 95 - Laboratory Lab Statement: Any lab studies that have been ordered have been reviewed, and results considered in the medical decision making process. EENT Course/Dx - Course Course Of Treatment: Eye exam WNL today and no contact or FB appreciated - Diagnoses Provider Diagnoses: Uses contact lenses Discharge ED - Sign-Out/Discharge Documenting (check all that apply): Patient Departure - Discharge Plan Condition: Stable Disposition: HOME Referrals: Kleber Perez MD [Primary Care Provider] - Additional Instructions: If you develop a fever, shortness of breath, chest pain, new or worsening symptoms - please call your PCP or go to the ED immediately. Your blood pressure was high at todays visit. Please see your primary provider within 4 weeks for recheck and re-evaluation. There was no contact in your eye this evening - Billing Disposition and Condition Condition: STABLE Disposition: Home
== END 2019-04-24 00:20 | disposition home or self-care (01) ==
LOC: ED 23:45
DX: Z97.3 Presence of spectacles and contact lenses (principal); I25.10 Atherosclerotic heart disease of native coronary artery without angina pectoris; E78.00 Pure hypercholesterolemia, unspecified; I10 Essential (primary) hypertension; Z95.0 Presence of cardiac pacemaker; Z87.442 Personal history of urinary calculi; Z79.82 Long term (current) use of aspirin
CPT/HCPCS: 99281; A9270-GY

== ENCOUNTER 2022-08-24 06:58 | Observation (INO) ==
[~2022-08-24 06:58] MED LIST: Buffered Lidocaine 1% SYRIN 1 ml INTRADERM ONE; Lactated Ringers 1000 ml BAG 1,000 ML IV SCH
[2022-08-24] MEDS ORDERED: cefTRIAXone 2 gm/50 mL D5W 2 GM/50 ML BAG IV ONE (07:19)
[2022-08-24] MEDS ORDERED: Ondansetron 4 mg VIAL 2 MG/ML 2 ml VIAL ONE (07:54)
[2022-08-24] MEDS ORDERED: Dexamethasone IV 4 MG/ML VIAL 1 ml VIAL ONE (07:54)
[2022-08-24] MEDS ORDERED: Propofol 10 MG/ML 20 ML BTL ONE (07:54)
[2022-08-24] MEDS ORDERED: Lidocaine 2% PF 5 ML VIAL ONE (07:54)
[2022-08-24] MEDS ORDERED: Midazolam 5 mg/5 ml VIAL 1 mg/ml 5 ml VIAL (5 mg) ONE (07:54)
[2022-08-24] MEDS ORDERED: fentaNYL 100 mcg/2 ml 50 MCG/ML VIAL ONE (07:54)
[2022-08-24] MEDS ORDERED: Phenylephrine 40 mcg/mL 10mL (400mcg) SYRINGE ONE (09:38)
[2022-08-24] MEDS ORDERED: Phenylephrine IV 10 MG/ML 1 ml VIAL ONE (10:00)
[2022-08-24] MEDS ORDERED: Naloxone 0.4 mg VIAL 0.4 mg/ml 1 ml VIAL IV PRN ×2 (10:13→10:28)
[2022-08-24] MEDS ORDERED: Ondansetron 4 mg VIAL 2 MG/ML 2 ml VIAL IV PRN (10:13)
[2022-08-24] MEDS ORDERED: fentaNYL 100 mcg/2 ml 50 MCG/ML VIAL IV PRN (10:13)
[2022-08-24] MEDS ORDERED: Acetaminophen IV 1 GM/100ML 1,000 MG/100 ML BAG IV ONE (10:21)
[2022-08-24] MEDS ORDERED: PHENYLEPHRINE DRIP IVPREMIX 50 MG/250 ML BAG IV SCH (11:00)
[2022-08-24] MEDS ORDERED: Lidocaine 2% JELLY 6 ML Topical TOPICAL PRN (13:27)
[2022-08-24] MEDS ORDERED: oxyCODONE/Acetamin 5/325 mg TAB PO PRN (13:27)
[2022-08-24] MEDS ORDERED: Fluticasone NASAL SPRAY 50MCG 16 gm SPRAY BTL BOTH NARES PRN (13:38)
[2022-08-24] MEDS ORDERED: AIRBORNE PO PRN (13:44)
[2022-08-24] MEDS: NS 0.9% 1000 ml BAG 1,000 ML IV SCH ×2 (13:55→21:03)
[2022-08-25] MEDS ORDERED: cefTRIAXone 1 gm/50 mL D5W 1 GM/50 ML BAG IV ONE (07:00)
[2022-08-25] MEDS: NS 0.9% 1000 ml BAG 1,000 ML IV SCH (07:05)
[2022-08-25 07:58] VITALS: BP 118/68
== END 2022-08-25 11:20 | disposition home or self-care (01) ==
LOC: SSU 06:58 → OR 06:58
PROVIDERS: ADMIT Urology; ATTEND Urology